=== PATIENT | female | born 1940 | race Caucasian/White ===

== ENCOUNTER 2017-06-06 18:31 | Outpatient (CLI) | payer MEDICARE, BC | END 2017-06-06 18:32 | disposition critical access hospital (66) | LOC: EMS 18:31 | PROVIDERS: ATTEND Surgery | DX: R06.02 Shortness of breath (principal); R03.0 Elevated blood-pressure reading, without diagnosis of hypertension; R51 Headache | CPT/HCPCS: A0425; A0429 ==

== ENCOUNTER 2017-06-06 18:49 | Emergency (ER) | payer MEDICARE, BC ==
--- NOTE | 2017-06-06 19:25 | ED Physician Documentation ---
PD HPI CHEST PAIN - Stated complaint Stated Complaint: SOA - Chief complaint Chief Complaint: Resp - History obtained from History obtained from: Patient - History of Present Illness Timing - onset: Other (Little over a month postop from left shoulder replacement. She also has a history of factor V Leiden breast cancer on the right. She is getting out of the shower today and she had unexplained dyspnea not associated with chest pain but she was hypertensive. She still feels a little dyspneic but mostly better.) Review of Systems Ten Systems: 10 systems reviewed and negative Constitutional: denies: Fever, Chills Nose: denies: Rhinorrhea / runny nose Cardiac: denies: Chest pain / pressure, Palpitations, Pedal edema, Calf pain PD PAST MEDICAL HISTORY - Past Medical History Past Medical History: Yes Cardiovascular: Hypertension, Pulmonary embolism Respiratory: None, Sleep apnea Neuro: Headache/migraine Endocrine/Autoimmune: None GI: None AS400 ANALYST: None : None HEENT: None Psych: Depression, Anxiety Musculoskeletal: Osteoarthritis Derm: None - Past Surgical History Past Surgical History: Yes General: Cholecystectomy Ortho: Arthroscopic surgery /AS400 ANALYST: Hysterectomy, Mastectomy Cardiovascular: Other HEENT: Tonsil/Adenoidectomy - Present Medications Home Medications: Ambulatory Orders Medication Instructions Recorded Confirmed Aspirin [Aspir 81] 81 mg ORAL DAILY 08/31/13 08/31/13 Calcium Carbonate [Calcium] 1,500 mg ORAL DAILY 08/31/13 08/31/13 Cholecalciferol (Vitamin D3) 3,000 units ORAL DAILY 08/31/13 08/31/13 [Vitamin D-3] Citalopram Hydrobromide 40 mg ORAL DAILY 08/31/13 08/31/13 [Citalopram HBr] Hydrochlorothiazide 50 mg ORAL DAILY 08/31/13 08/31/13 Meloxicam 7.5 mg ORAL BID 08/31/13 08/31/13 Potassium Chloride [K-Dur] 20 mg ORAL BID 08/31/13 08/31/13 Propranolol HCl 160 mg ORAL BID 08/31/13 08/31/13 Sumatriptan Succinate [Imitrex] 50 mg ORAL DAILY PRN 08/31/13 08/31/13 Topiramate [Topamax] 100 mg ORAL DAILY 08/31/13 08/31/13 buPROPion [Wellbutrin Sr] 150 mg ORAL BID 08/31/13 08/31/13 traZODone [Desyrel] 150 mg ORAL DAILY 08/31/13 08/31/13 - Allergies Allergies/Adverse Reactions: Allergies Allergy/AdvReac Type Severity Reaction Status Date / Time cephalexin monohydrate * AdvReac Nausea Verified 08/31/13 07:24 [From Keflex] doxycycline AdvReac Nausea Verified 08/31/13 07:24 vancomycin AdvReac Itching Verified 08/31/13 07:24 - Social History Does the pt smoke?: No Smoking Status: Never smoker Does the pt drink ETOH?: No - Immunizations Immunizations are current?: Yes PD ED PE NORMAL - Vitals Vital signs reviewed: Yes - General General: Alert and oriented X 3, No acute distress - HEENT HEENT: PERRL, EOMI - Neck Neck: Supple, no meningeal sign, No bony TTP - Cardiac Cardiac: RRR, No murmur - Respiratory Respiratory: No respiratory distress, Clear bilaterally - Extremities Extremities: Other (Right arm lymphedema) - Neuro Neuro: Alert and oriented X 3, Normal speech - Psych Psych: Normal mood, Normal affect Results - Vitals Vitals: Vital Signs - 24 hr 06/06/17 06/06/17 06/06/17 18:50 21:18 22:35 Temperature 36.9 C Heart Rate 73 65 61 Respiratory 20 20 16 Rate Blood Pressure 180/121 H 166/89 H 161/108 H O2 Saturation 95 98 99 Oxygen O2 Source Room air - Labs Labs: Laboratory Tests 06/06/17 06/06/17 06/06/17 19:52 19:52 19:52 WBC 6.3 RBC 4.71 Hgb 14.5 Hct 42.9 MCV 91.3 MCH 30.7 MCHC 33.7 RDW 13.0 Plt Count 239 MPV 7.5 L Neut # 3.7 Lymph # 1.8 [place] # 0.5 Eos # 0.3 Baso # 0.1 Absolute Nucleated RBC 0.00 Nucleated RBC % 0.0 PT 12.9 H INR 1.1 D-Dimer Sodium 140 Potassium 3.7 Chloride 104 Carbon Dioxide 27 Anion Gap 9.0 BUN 14 Creatinine 0.9 Estimated GFR (MDRD) 61 L Glucose 114 H Calcium 9.0 Total Bilirubin 0.7 AST 23 ALT 16 Alkaline Phosphatase 84 Troponin I Total Protein 6.4 L Albumin 3.8 Globulin 2.6 Albumin/Globulin Ratio 1.5 Lipase 14 L 06/06/17 06/06/17 19:52 19:52 WBC RBC Hgb Hct MCV MCH MCHC RDW Plt Count MPV Neut # Lymph # [place] # Eos # Baso # Absolute Nucleated RBC Nucleated RBC % PT INR D-Dimer 401.7 H Sodium Potassium Chloride Carbon Dioxide Anion Gap BUN Creatinine Estimated GFR (MDRD) Glucose Calcium Total Bilirubin AST ALT Alkaline Phosphatase Troponin I < 0.04 Total Protein Albumin Globulin Albumin/Globulin Ratio Lipase - Rads (name of study) CT PA Radiology: EMP read contemporaneously (No PE, Lg Heart, pulm htn) PD MEDICAL DECISION MAKING - ED course ED course: 76-year-old woman with an episode of dyspnea today, she has significant risk factors for PE including a history of factor V Leiden disease and fairly recent surgery. I personally placed a 20-gauge long IV using real-time ultrasound guidance in the left deep brachial vein which flushed easily and raul labs, that said during CT angiogram it infiltrated and we were able to get no images off that. On examination of the area afterward it appeared benign without significant skin changes and watchful waiting is advised. D-dimer was done at that point to risk stratify further for pulmonary embolism. I placed another IV and this 1 works better and the images were obtained without PE, chronic findings only. The arm was reexamined and looks better prior to discharge, still no blistering or skin breakdown. Departure - Departure Disposition: 01 Home, Self Care Clinical Impression: Dyspnea Qualifiers: Dyspnea type: dyspnea on exertion Qualified Code(s): R06.09 - Other forms of dyspnea Extravasation accident Qualifiers: Encounter type: initial encounter Qualified Code(s): T80.818A - Extravasation of other vesicant agent, initial encounter Condition: Good Record reviewed to determine appropriate education?: Yes Instructions: ED Dyspnea Shortness of Breath Comments: Follow-up with your doctor, next available appointment. Elevate your left arm where the contrast went under the skin and apply ice intermittently. If he develop blistering, increased pain, skin changes or increased firmness or swelling please return for reevaluation.
[2017-06-06 20:03] LABS: BASOPHILS # (AUTO) 0.1 10^3/uL (0.0-0.1); EOSINOPHILS # (AUTO) 0.3 10^3/uL (0.0-0.7); EOSINOPHILS % (AUTO) 4.8 %; HGB - HEMOGLOBIN 14.5 g/dL (12.0-16.0); LYMPHOCYTES # (AUTO) 1.8 10^3/uL (1.5-3.5); LYMPHOCYTES % (AUTO) 27.9 %; MEAN CORPUSCULAR HEMOGLOBIN 30.7 pg (27.0-31.0); MEAN CORPUSCULAR HGB CONC 33.7 g/dL (32.0-36.0); MEAN CORPUSCULAR VOLUME 91.3 fL (81.0-99.0); MEAN PLATELET VOLUME 7.5 fL (7.9-10.8); MONOCYTES # (AUTO) 0.5 10^3/uL (0.0-1.0); MONOCYTES % (AUTO) 7.5 %; NEUTROPHILS # (AUTO) 3.7 10^3/uL (1.5-6.6); NEUTROPHILS % (AUTO) 58.8 %; PLT - PLATELET COUNT 239 10^3/uL (130-450); RED BLOOD COUNT 4.71 10^6/uL (4.20-5.40); WHITE BLOOD COUNT 6.3 x10^3/uL (4.8-10.8)
[2017-06-06 20:09] LABS: INR 1.1 (0.8-1.2); PT - PROTHROMBIN TIME 12.9 secs (9.9-12.6)
[2017-06-06 20:17] LABS: ALBUMIN 3.8 g/dL (3.2-5.5); ALBUMIN/GLOBULIN RATIO 1.5 (1.0-2.2); BILIRUBIN,TOTAL 0.7 mg/dL (0.2-1.0); CREATININE 0.9 mg/dL (0.4-1.0); TOTAL PROTEIN 6.4 g/dL (6.7-8.2)
[2017-06-06] MEDS ORDERED: IOPAMIDOL-300 100 ML VIAL ONE ×2 (20:25→21:55)
[2017-06-06] MEDS ORDERED: IOPAMIDOL-300 100 ML VIAL IVP ONE (22:15)
[2017-06-06 22:36] VITALS: BP 161/108
--- NOTE | 2017-06-06 22:57 | CT Preliminary Report ---
Exam: CT CHEST ANGIO (PE) IMPRESSION: 1. Normal pulmonary CT angiogram. No pulmonary emboli. Palate and main pulmonary artery suggestive of pulmonary hypertension. 2. Cardiac enlargement. No pericardial effusion or bulky adenopathy. Ectatic thoracic aorta. 3. Atelectatic changes. No acute pulmonary process. [facility] SITE ID: [id number]
--- NOTE | 2017-06-06 23:07 | CT Report ---
EXAM: CT ANGIOGRAM CHEST EXAM DATE: 06/06/2017 10:14 PM. CLINICAL HISTORY: Dyspnea. COMPARISON: 04/20/2014. TECHNIQUE: Routine helical imaging was performed through the chest in the pulmonary arterial phase. I V Contrast: 80 mL Isovue 300. Reconstructions: Coronal 3-D MIP reconstructions.Sagittal and coronal. In accordance with CT protocol optimization, one or more of the following dose reduction techniques w ere utilized for this exam: automated exposure control, adjustment of mA and/or KV based on patient s ize, or use of iterative reconstructive technique. FINDINGS: Pulmonary Arteries: Diagnostic quality: Adequate through the segmental arteries. No evidence for acute or chronic pulmona ry emboli. Prominent main pulmonary artery measures approximately 3.7 cm in the axial diameter. RV/LV is within normal limits. There is no interventricular septal bowing. There is no reflux of cont rast material in the IVC. Lungs/Pleura: No consolidation, nodules, or edema. No effusions or pneumothorax. Patchy areas of atel ectasis are noted at the lung bases. No endobronchial lesion is noted. Moderate perihilar bronchial w all thickening. Mediastinum: The heart is enlarged. No pericardial effusion. No bulky mediastinal or hilar adenopathy . Thoracic Aorta: Ectatic thoracic aorta noted. Insufficient opacification for evaluating dissection. A scending thoracic aorta measures 4 cm. Upper Abdomen: Multiple low density cysts are present within the liver. Gallbladder surgically absent . Elevated right hemidiaphragm. Limited evaluation of the upper abdomen otherwise unremarkable. Other: Status post right breast reconstruction following mastectomy. Remaining subcutaneous soft tiss ues of the chest are normal. Normal left breast. Heterogeneous enlarged thyroid gland. Possible right inferior thyroid nodule measuring 2.2 cm. No supraclavicular adenopathy. No bulky axillary adenopath y. Significant streak artifacts are noted in shoulder region due to the shoulder arthroplasty. Severe right glenohumeral joint arthritis with normal alignment. Patient is status post left shoulder arthroplasty. Normal alignment. No osteoblastic or osteolytic lesions are noted. Grade 1 T1 on T2 an terolisthesis of 3 mm. Severe degenerative disk disease is noted at this level. No paraspinal hematom a. IMPRESSION: 1. Normal pulmonary CT angiogram. No pulmonary emboli. Dilated main pulmonary artery suggestive of pu lmonary arterial hypertension. 2. Cardiac enlargement. No pericardial effusion or bulky adenopathy. Ectatic thoracic aorta. 3. Atelectatic changes. No acute pulmonary process. [facility] Referring Provider Line: [phone] SITE ID: [id number]
== END 2017-06-06 23:21 | disposition home or self-care (01) ==
LOC: ED 18:49
DX: R06.09 Other forms of dyspnea (principal); T80.818A Extravasation of other vesicant agent, initial encounter; D68.51 Activated protein C resistance; I10 Essential (primary) hypertension; Z85.3 Personal history of malignant neoplasm of breast; Z90.10 Acquired absence of unspecified breast and nipple; Z98.890 Other specified postprocedural states; Z86.711 Personal history of pulmonary embolism; Z79.82 Long term (current) use of aspirin
CPT/HCPCS: 36415; 71275; 80053; 83690; 84484; 85025; 85379; 85610; 93005; 99284; Q9967

== ENCOUNTER 2018-12-16 07:42 | Outpatient (CLI) | payer MEDICARE, BC ==
--- NOTE | 2018-12-16 15:33 | XRAY Report ---
Reason: CALCULUS OF KIDNEY Procedure Date: 12/16/2018 Accession Number: [id number] / [id number] Procedure: XR - Abdomen 1 View X-Ray CPT Code: 72440 FULL RESULT: EXAM: ABDOMEN RADIOGRAPHY EXAM DATE: 12/16/2018 08:07 AM. CLINICAL HISTORY: Calculus of kidney. COMPARISON: None. TECHNIQUE: 1 view. FINDINGS: Bowel Gas Pattern: Within normal limits. No dilated loops. Other: 1 cm amorphous calcification at the mid pole area of the right kidney. No radiopaque left-sided nephroliths detected. There is moderate leftward lumbar scoliosis. No ureteral calculi detected. Bipolar right hip arthroplasty. IMPRESSION: Findings consistent with right nephrolithiasis. [facility]
== END 2018-12-16 07:43 | disposition home or self-care (01) ==
LOC: DI 07:42
PROVIDERS: ATTEND Urology
DX: N20.0 Calculus of kidney (principal)
CPT/HCPCS: 74018